=== PATIENT | male | born 1965 | race African-American/Black ===

== ENCOUNTER 2022-06-30 13:32 | Emergency (ER) | payer OTHER ==
[2022-06-30 13:39] VITALS: BP 156/83; PULSE 64; RESP 18; TEMP 97.7; BMI 28.3
[2022-06-30] MEDS ORDERED: BACITRACIN 0.9 GM PACKET TP ONE (13:55)
== END 2022-06-30 15:25 | disposition home or self-care (01) ==
LOC: JERFT 13:32
DX: S40.812A Abrasion of left upper arm, initial encounter (principal); W01.0XXA Fall on same level from slipping, tripping and stumbling without subsequent striking against object, initial encounter
CPT/HCPCS: 99282-25

== ENCOUNTER 2024-04-02 14:19 | Emergency (ER) | payer OTHER ==
[2024-04-02 14:24] VITALS: PULSE 77; RESP 18; TEMP 98.2; BMI 27.2
[2024-04-02 15:05] VITALS: BP 133/96
[2024-04-02] MEDS ORDERED: IBUPROFEN 600 MG TABLET (FP) PO ONE (15:42)
[2024-04-02] MEDS: IBUPROFEN 600 MG TABLET (FP) PO ONE (15:43)
== END 2024-04-02 17:52 | disposition home or self-care (01) ==
LOC: JERFT 14:19
DX: S20.212A Contusion of left front wall of thorax, initial encounter (principal); S00.83XA Contusion of other part of head, initial encounter; Y04.0XXA Assault by unarmed brawl or fight, initial encounter
CPT/HCPCS: 71101-TC-LT-FY; 99283-25